=== PATIENT | female | born 1970 | race American Indian/Alaskan Native ===

== ENCOUNTER 2017-01-04 17:44 | Emergency (ER) | payer MEDICAID ==
[2017-01-04 18:11] VITALS: RESP 18; TEMP 98.7; O2SAT 99
--- NOTE | 2017-01-04 19:35 | C.PDOC ---
History Of Present Illness 46 year old female presents to the emergency room for the evaluation of right forearm pain for 4 days. Patient developed the pain after slamming patient's hand against the bus door. Patient describes the pain as constant and aching. Patient notes the pain is worst with movement. Patient notes some swelling that began this morning. Patient denies any obvious deformities, skin changes, neurovascular deficits, any other pain or swelling, or any other complaints. Time Seen by Provider: 01/04/17 18:21 Chief Complaint (Nursing): Upper Extremity Problem/Injury History Per: Patient History/Exam Limitations: no limitations Onset/Duration Of Symptoms: Days (4) Current Symptoms Are (Timing): Still Present Quality: "Pain" Severity: Mild Exacerbating Factor(s): Movement Recent travel outside of the [place]: No Past Medical History Reviewed: Historical Data, Nursing Documentation, Vital Signs Vital Signs: Last Vital Signs Temp 98.7 F 01/04/17 18:10 Pulse 78 01/04/17 18:10 Resp 18 01/04/17 18:10 BP 153/88 H 01/04/17 18:10 Pulse Ox 99 01/04/17 19:40 - Medical History PMH: Anxiety Family History: States: Unknown Family Hx - Social History Hx Tobacco Use: Yes Hx Alcohol Use: No Hx Substance Use: No - Immunization History Hx Tetanus Toxoid Vaccination: No Hx Influenza Vaccination: No Hx Pneumococcal Vaccination: No Review Of Systems Except As Marked, All Systems Reviewed And Found Negative. Constitutional: Negative for: Fever, Chills, Weakness Gastrointestinal: Negative for: Nausea, Vomiting, Diarrhea Musculoskeletal: Positive for: Arm Pain (Right forearm pain and swelling) Neurological: Negative for: Weakness, Numbness Physical Exam - Physical Exam Appears: Well, Non-toxic Skin: Normal Color, Warm, Dry Head: Atraumatic, Normacephalic Eye(s): bilateral: Normal Inspection Oral Mucosa: Moist, Other (Strong ETOH odor) Neck: Normal ROM, No Midline Cervical Tenderness, No Paracervical Tenderness, Supple Extremity: Normal ROM (Full active ROM), Tenderness (Mild tenderness of right volar aspect of the right forearm extend down to dorsal asepct Right wrist.), Capillary Refill (less than 2sec to Right hand), No Deformity, Swelling (Trace edema of the dorsal right wrist.) Extremity: Bilateral: Atraumatic Neurological/Psych: Oriented x3, Normal Speech, Normal Motor, Normal Sensation, Normal Reflexes ED Course And Treatment O2 Sat by Pulse Oximetry: 99 Pulse Ox Interpretation: Normal - Other Rad Right wrist, forarm X-Ray: Interpreted by Me, Viewed By Me Interpretation: no acute fx Progress Note: On re-eavl, pt is afebrile, hemodynamicaly stable. Non-toxic. Right UE: exam c/w forearm /wrist contusion. No palpable deformity. FAROM, no neurovascular deficits. Disposition Counseled Patient/Family Regarding: Studies Performed, Diagnosis, Need For Followup - Disposition Referrals: [facility] [Outside] Disposition Time: 19:10 Condition: STABLE Additional Instructions: Sedrick wrap Tylenol for pain Follow up with PMD In 2-3 days for re-evaluation. return to ED if any new changes. Instructions: Wrist Sprain (ED) - Clinical Impression Clinical Impression: Contusion, Wrist sprain - Scribe Statement The provider has reviewed the documentation as recorded by the Scribjay Calvo All medical record entries made by the Kerenibjay were at my direction and personally dictated by me. I have reviewed the chart and agree that the record accurately reflects my personal performance of the history, physical exam, medical decision making, and the department course for this patient. I have also personally directed, reviewed, and agree with the discharge instructions and disposition.
[2017-01-04 20:08] VITALS: BP 140/75; PULSE 75
--- NOTE | 2017-01-05 10:07 | RAD ---
PROCEDURE: Radiographs of the Right Forearm HISTORY: injury COMPARISON: None available. TECHNIQUE: Frontal and lateral views obtained. FINDINGS: BONES: No fracture or destructive lesion. JOINT SPACES: Unremarkable. OTHER FINDINGS: None. IMPRESSION: Unremarkable radiographs of the right forearm.
--- NOTE | 2017-01-05 10:08 | RAD ---
PROCEDURE: Right Wrist Radiographs. HISTORY: injury COMPARISON: None. FINDINGS: BONES: Normal. No fracture. JOINTS: Normal. No dislocation. SOFT TISSUES: Normal. OTHER FINDINGS: None. IMPRESSION: Normal right wrist radiographs.
== END 2017-01-04 20:08 | disposition home or self-care (01) ==
LOC: C.ER 17:44
DX: S63.501A Unspecified sprain of right wrist, initial encounter (principal); S50.11XA Contusion of right forearm, initial encounter; W22.09XA Striking against other stationary object, initial encounter; Y92.811 Bus as the place of occurrence of the external cause